=== PATIENT | female | born 1995 | race Caucasian/White ===

== ENCOUNTER 2021-08-09 19:22 | Emergency (ER) | payer OTHER ==
[~2021-08-09] VITALS: Ht 154.9 cm; Wt 99.8 kg
[~2021-08-09 19:22] MED LIST: DICLOFENAC SODI75 MG PO; ETODOLAC500 MG; MEDROLPACK PO
[2021-08-09] MEDS ORDERED: BENZONATATE 200 MG (19:51)
== END 2021-08-10 02:02 | disposition home or self-care (01) ==
LOC: ER 19:22
DX: U07.1 COVID-19 (principal); J45.909 Unspecified asthma, uncomplicated